=== PATIENT | male | born 1995 | race Caucasian/White ===

== ENCOUNTER 2016-05-28 21:42 | Emergency (ER) | payer SELFPAY ==
[~2016-05-28] VITALS: Ht 180.3 cm; Wt 61.7 kg
[~2016-05-28 21:42] MED LIST: ALBU2SYR PO; GUAI-671 PO
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
--- NOTE | 2016-05-29 00:05 | NUR ---
Patient discharged to home in stable conditon. Written and verbal after care instructions given. Patient verbalizes understanding of instructions. Pt walked out of ER unassisted with belongings at side...
[2016-05-29 00:06] VITALS: BP 126/95
== END 2016-05-29 00:07 | disposition home or self-care (01) ==
LOC: ER 21:44
DX: M54.9 Dorsalgia, unspecified (principal); K21.9 Gastro-esophageal reflux disease without esophagitis; G43.909 Migraine, unspecified, not intractable, without status migrainosus; F41.9 Anxiety disorder, unspecified
CPT/HCPCS: 72072; A4663

== ENCOUNTER 2018-11-03 14:00 | Emergency (ER) | payer MEDICAID, OTHER ==
[~2018-11-03] VITALS: Ht 175.3 cm; Wt 60.8 kg
--- NOTE | 2018-11-03 14:18 | NUR ---
PATIENT WAS MSE BY DR JAIMES IN ROOM 04A.
[2018-11-03 14:40] LABS: BASOPHILS % (AUTO) 0.9 % (0.0-2.0); EOSINOPHILS # (AUTO) 0.1 K/uL (0.0-0.7); HEMATOCRIT 46.6 % (36.7-47.1); HEMOGLOBIN 15.7 g/dL (12.5-16.3); LYMPHOCYTES # (AUTO) 1.1 K/uL (20.0-40.0); LYMPHOCYTES % (AUTO) 27.9 % (20.5-51.5); MEAN CORPUSCULAR HEMOGLOBIN 29.6 uug (23.8-33.4); MEAN CORPUSCULAR HGB CONC 34 g/dL (32.5-36.3); MONOCYTES # (AUTO) 0.6 K/uL (2.0-10.0); MONOCYTES % (AUTO) 14.6 % (0.0-11.0); NEUTROPHILS # (AUTO) 2.2 K/uL (1.8-8.9); NEUTROPHILS % (AUTO) 54.6 % (38.5-71.5); PLATELET COUNT (AUTO) 161 K/uL (152-348); WHITE BLOOD COUNT (AUTO) 4.1 K/uL (3.6-10.2)
[2018-11-03 14:47] LABS: POTASSIUM 4.3 mmol/L (3.5-5.1)
[2018-11-03 14:54] LABS: BILIRUBIN,DIRECT 0.2 mg/dL (0.0-0.2); BILIRUBIN,TOTAL 0.9 mg/dL (0.2-1.0)
[2018-11-03] MEDS ORDERED: LIDOCAINE VISCUS 2% 15 ML UDC MM ONE (15:15)
[2018-11-03] MEDS ORDERED: MAG HYDROX/AL HYDROX/SIMETH 30 ML LIQUID UDC PO ONE (15:15)
[2018-11-03] MEDS ORDERED: MAG HYDROX/AL HYDROX/SIMETH 30 ML LIQUID UDC ONE (15:39)
--- NOTE | 2018-11-03 15:39 | NUR ---
Patient discharged to home in stable conditon. Written and verbal after care instructions given. Patient verbalizes understanding of instructions.
[2018-11-03] MEDS ORDERED: LIDOCAINE VISCUS 2% 15 ML UDC ONE (15:40)
[2018-11-03 15:41] VITALS: BP 116/70
== END 2018-11-03 15:42 | disposition home or self-care (01) ==
LOC: ER 14:00
DX: R19.7 Diarrhea, unspecified (principal); G43.909 Migraine, unspecified, not intractable, without status migrainosus; K21.9 Gastro-esophageal reflux disease without esophagitis; F41.9 Anxiety disorder, unspecified; Z90.49 Acquired absence of other specified parts of digestive tract
CPT/HCPCS: 36415; 83690; 85025; A4663

== ENCOUNTER 2019-01-14 11:43 | Emergency (ER) | payer OTHER ==
[~2019-01-14] VITALS: Ht 172.7 cm; Wt 61.2 kg
[2019-01-14] MEDS ORDERED: IV NORMAL SALINE 1000 ML BAG IV ONE (12:30)
[2019-01-14] MEDS ORDERED: SWABABLE VALVE TRANSFER SET EA MC ONE (12:34)
[2019-01-14] MEDS ORDERED: IOHEXOL 350 100 ML INFUS..BTL ONE (12:35)
[2019-01-14] MEDS ORDERED: IV NORMAL SALINE 250 ML IV ONE (12:35)
[2019-01-14 12:36] LABS: BASOPHILS # (AUTO) 0.1 K/uL (0.0-8.0); BASOPHILS % (AUTO) 2.1 % (0.0-2.0); EOSINOPHILS # (AUTO) 0.1 K/uL (0.0-0.7); EOSINOPHILS % (AUTO) 1.9 % (0.0-7.0); HEMATOCRIT 45.8 % (36.7-47.1); HEMOGLOBIN 15.1 g/dL (12.5-16.3); LYMPHOCYTES # (AUTO) 1.4 K/uL (20.0-40.0); LYMPHOCYTES % (AUTO) 37.2 % (20.5-51.5); MEAN CORPUSCULAR HEMOGLOBIN 29.6 uug (23.8-33.4); MEAN CORPUSCULAR HGB CONC 33 g/dL (32.5-36.3); MEAN CORPUSCULAR VOLUME 89.7 fL (73.0-96.2); MONOCYTES # (AUTO) 0.4 K/uL (2.0-10.0); MONOCYTES % (AUTO) 10.1 % (0.0-11.0); NEUTROPHILS # (AUTO) 1.8 K/uL (1.8-8.9); NEUTROPHILS % (AUTO) 48.7 % (38.5-71.5); PLATELET COUNT (AUTO) 164 K/uL (152-348); RED BLOOD CELL COUNT(AUTO) 5.11 MIL/uL (4.06-5.63); WHITE BLOOD COUNT (AUTO) 3.6 K/uL (3.6-10.2)
[2019-01-14 12:47] LABS: CREATININE 0.9 mg/dL (0.6-1.3); POTASSIUM 3.7 mmol/L (3.5-5.1)
--- NOTE | 2019-01-14 12:54 | NUR ---
PT IS IN ROOM #1B. DR MARSHALL EVALUATED THE PT.
[2019-01-14 12:59] LABS: BILIRUBIN,DIRECT 0.2 mg/dL (0.0-0.2); TOTAL PROTEIN, SERUM 7.2 g/dL (6.4-8.2)
--- NOTE | 2019-01-14 14:59 | NUR ---
PT WAS D/C'd TO HOME. D/C INSTRUCTIONS GIVEN TO THE PT BY DR MARSHALL.
[2019-01-14 15:01] VITALS: BP 132/77
== END 2019-01-14 15:02 | disposition home or self-care (01) ==
LOC: ER 11:43
DX: R07.89 Other chest pain (principal); R42 Dizziness and giddiness; R11.0 Nausea; K21.9 Gastro-esophageal reflux disease without esophagitis; F41.9 Anxiety disorder, unspecified; Z90.49 Acquired absence of other specified parts of digestive tract
CPT/HCPCS: 36415; 71275; 80048; 80076; 83880; 84484; 85025; 85379; 85730; 93005; 99284; Q9967; 70030-TC; A4663; J7030; J7050

== ENCOUNTER 2020-09-03 22:09 | Emergency (ER) | payer OTHER ==
[~2020-09-03] VITALS: Ht 180.3 cm; Wt 59.0 kg
--- NOTE | 2020-09-03 22:23 | NUR ---
Dr Hummel at bedside for mse
--- NOTE | 2020-09-03 22:23 | NUR ---
Pt states he has been having the feeling of a strong heartbeat off and on for two weeks. Denies drug use, denies use of caffeine. Denies history of cardiac condition.
[2020-09-03] MEDS ORDERED: LORAZEPAM 0.5 MG TABLET PO ONE (22:30)
--- NOTE | 2020-09-03 22:30 | NUR ---
xray at bedside
[2020-09-03] MEDS ORDERED: LORAZEPAM 1 MG TABLET ONE (22:54)
[2020-09-03 23:12] LABS: HEMATOCRIT 42.7 % (36.7-47.1); MEAN CORPUSCULAR HEMOGLOBIN 30.1 uug (23.8-33.4); MEAN CORPUSCULAR VOLUME 89.1 fL (73.0-96.2); PLATELET COUNT (AUTO) 208 K/uL (152-348)
[2020-09-03 23:16] LABS: CREATININE 0.9 mg/dL (0.6-1.3); POTASSIUM 3.9 mmol/L (3.5-5.1)
--- NOTE | 2020-09-03 23:50 | NUR ---
Patient discharged to home in stable condition. Written and verbal after care instructions given. Patient verbalizes understanding of instructions. Stressed follow up or return to ER for worsening s/s. Pt being driven by friend home. Vss. Pt walks with steady gait. All belongings went with pt.
[2020-09-03 23:51] VITALS: BP 112/83
== END 2020-09-03 23:51 | disposition home or self-care (01) ==
LOC: ER 22:12
DX: R00.2 Palpitations (principal); R00.0 Tachycardia, unspecified; F41.9 Anxiety disorder, unspecified
CPT/HCPCS: 36415; 70030-TC; 71045; 85025; 93005; A4663

== ENCOUNTER 2020-09-09 16:13 | Emergency (ER) | payer OTHER ==
[~2020-09-09] VITALS: Ht 180.3 cm; Wt 59.0 kg
[2020-09-09] MEDS ORDERED: KETOROLAC TROMETHAMINE 60 MG INJ IM ONE ×2 (17:00→17:21)
[2020-09-09] MEDS ORDERED: IBUP-1955 PO (18:30)
[2020-09-09 18:57] LABS: *BILIRUBIN,URIN NEGATIVE (NEGATIVE); *BLOOD, URINE NEGATIVE (NEGATIVE); *CLARITY,URINE CLEAR (CLEAR); *COLOR,URINE YELLOW (YELLOW); *KETONES,URINE NEGATIVE (NEGATIVE); *UROBILINOGEN,URINE 0.2 E.U./dl (NORMAL); LEUKOCYTE ESTERASE ,URINE NEGATIVE (NEGATIVE); NITRITE, URINE NEGATIVE (NEGATIVE); UGLUCOSE NEGATIVE (NEGATIVE)
--- NOTE | 2020-09-09 20:26 | NUR ---
Patient discharged to home in stable condition. Written and verbal after care instructions given. Patient verbalizes understanding of instructions. Stressed follow up or return to ER for worsening s/s.
[2020-09-09 20:27] VITALS: BP 110/77
== END 2020-09-09 20:27 | disposition home or self-care (01) ==
LOC: ER 16:13
DX: N50.812 Left testicular pain (principal); K29.70 Gastritis, unspecified, without bleeding
CPT/HCPCS: 76870; 81003; 96372; 99284; J1885; A4663

== ENCOUNTER 2020-12-14 17:43 | Emergency (ER) | payer OTHER ==
[~2020-12-14] VITALS: Ht 180.3 cm; Wt 61.2 kg
[~2020-12-14 17:43] MED LIST changes: -ALBU2SYR PO; -GUAI-671 PO; +IBUP-1955 PO
[2020-12-14] MEDS ORDERED: LIDOCAINE VISCUS 2% 15 ML UDC MM ONE (18:00)
[2020-12-14] MEDS ORDERED: MAG HYDROX/AL HYDROX/SIMETH 30 ML LIQUID UDC PO ONE (18:00)
[2020-12-14] MEDS ORDERED: OMEP20CA15 PO (18:07)
[2020-12-14] MEDS ORDERED: MAG HYDROX/AL HYDROX/SIMETH 30 ML LIQUID UDC ONE (18:20)
[2020-12-14] MEDS ORDERED: LIDOCAINE VISCUS 2% 15 ML UDC ONE (18:20)
[2020-12-14] MEDS ORDERED: FAMOTIDINE 20 MG TABLET PO ONE (18:30)
[2020-12-14] MEDS ORDERED: FAMOTIDINE 20 MG TABLET ONE (18:32)
== END 2020-12-14 18:27 | disposition home or self-care (01) ==
LOC: ER 17:44
DX: K21.9 Gastro-esophageal reflux disease without esophagitis (principal); Z87.19 Personal history of other diseases of the digestive system
CPT/HCPCS: A4663

== ENCOUNTER 2021-03-26 15:29 | Emergency (ER) | payer OTHER ==
[~2021-03-26] VITALS: Ht 180.3 cm; Wt 61.2 kg
[~2021-03-26 15:29] MED LIST changes: +OMEP20CA15 PO
[2021-03-26] MEDS ORDERED: PANTOPRAZOLE SODIUM 40 MG VIAL ONE (16:28)
[2021-03-26] MEDS ORDERED: ONDANSETRON 4 MG/2 ML VIAL ONE (16:28)
[2021-03-26] MEDS: ONDANSETRON 4 MG/2 ML VIAL IV ONE (16:30)
[2021-03-26] MEDS: PANTOPRAZOLE SODIUM 40 MG VIAL IV ONE (16:33)
[2021-03-26] MEDS: IV NORMAL SALINE 1000 ML BAG IV ONE (16:33)
[2021-03-26 16:45] LABS: BILIRUBIN,DIRECT 0.2 mg/dL (0.0-0.2); BILIRUBIN,TOTAL 0.6 mg/dL (0.2-1.0); POTASSIUM 4.1 mmol/L (3.5-5.1); TOTAL PROTEIN, SERUM 7.4 g/dL (6.4-8.2)
[2021-03-26 16:57] LABS: HEMATOCRIT 42.1 % (36.7-47.1); MEAN CORPUSCULAR HEMOGLOBIN 29.5 uug (23.8-33.4); PLATELET COUNT (AUTO) 192 K/uL (152-348)
--- NOTE | 2021-03-26 17:25 | NUR ---
Patient is resting comfortably in bed with eyes closed< NAD noted.,
[2021-03-26] MEDS ORDERED: ONDA8TAB13 PO (18:44)
[2021-03-26 18:58] VITALS: BP 120/56
== END 2021-03-26 18:59 | disposition home or self-care (01) ==
LOC: ER 15:30
DX: K29.70 Gastritis, unspecified, without bleeding (principal); J45.909 Unspecified asthma, uncomplicated; K21.9 Gastro-esophageal reflux disease without esophagitis; Z90.49 Acquired absence of other specified parts of digestive tract; Z79.1 Long term (current) use of non-steroidal anti-inflammatories (NSAID); Z79.899 Other long term (current) drug therapy
CPT/HCPCS: 36415; 80048; 80076; 83690; 85025; 96361; 96374; 96375; 99284; C9113; J2405; A4663

== ENCOUNTER 2022-07-31 15:32 | Emergency (ER) | payer OTHER ==
[~2022-07-31] VITALS: Ht 180.3 cm; Wt 68.0 kg
[~2022-07-31 15:32] MED LIST changes: +ONDA8TAB13 PO
--- NOTE | 2022-07-31 15:51 | NUR ---
PT IS IN ROOM #2A, DR MARSHALL EVALUATED THE PT.
[2022-07-31] MEDS ORDERED: IBUPROFEN 800 MG TABLET PO ONE (16:45)
[2022-07-31] MEDS ORDERED: NAPR-1164 PO (18:08)
[2022-07-31] MEDS ORDERED: IBUPROFEN 800 MG TABLET ONE (18:20)
[2022-07-31 18:44] VITALS: BP 132/74
--- NOTE | 2022-07-31 18:44 | NUR ---
PT WAS D/C'd TO HOME. D/C INSTRUCTIONS GIVEN TO THE PT BY DR MARSHALL.
== END 2022-07-31 18:45 | disposition home or self-care (01) ==
LOC: ER 15:32
DX: S22.41XA Multiple fractures of ribs, right side, initial encounter for closed fracture (principal); J45.909 Unspecified asthma, uncomplicated; K21.9 Gastro-esophageal reflux disease without esophagitis; Z90.49 Acquired absence of other specified parts of digestive tract; Z79.1 Long term (current) use of non-steroidal anti-inflammatories (NSAID); Z79.899 Other long term (current) drug therapy; W22.8XXA Striking against or struck by other objects, initial encounter; Y93.89 Activity, other specified; Y92.89 Other specified places as the place of occurrence of the external cause; Y99.8 Other external cause status
CPT/HCPCS: 71101; 71250; A4663